=== PATIENT | female | born 1970 | race Caucasian/White ===

== ENCOUNTER 2020-06-01 20:16 | Emergency (ER) | payer SELFPAY ==
[~2020-06-01] VITALS: Ht 170.2 cm; Wt 72.0 kg
[~2020-06-01 20:16] MED LIST: IBUP-1222 PO; OXYC-302 PO
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
[2020-06-01] MEDS ORDERED: KETOROLAC 30 MG/1 ML ONE (20:45)
[2020-06-01] MEDS ORDERED: METHOCARBAMOL 750 MG TABLET ONE (20:45)
--- NOTE | 2020-06-01 20:51 | NUR ---
TORADOL AND ROBAXIN GIVEN PER EMAR.
[2020-06-01] MEDS ORDERED: METHOCARBAMOL 750 MG TABLET PO ONE (21:00)
[2020-06-01] MEDS ORDERED: KETOROLAC 30 MG/1 ML IM ONE (21:00)
--- NOTE | 2020-06-01 21:03 | NUR ---
TO XR PER PILO
[2020-06-01 21:56] VITALS: BP 119/90
--- NOTE | 2020-06-01 21:57 | NUR ---
PT LYING ON GURNEY; REPORTS IMPROVEMENT IN PAIN. SPOUSE AT BS.
--- NOTE | 2020-06-01 22:03 | NUR ---
PT REPORT TO ZEE JOHNSON. PT CARE TRANSFERRED.
== END 2020-06-01 22:35 | disposition home or self-care (01) ==
LOC: ED 22:11
DX: S22.080A Wedge compression fracture of T11-T12 vertebra, initial encounter for closed fracture (principal); W13.1XXA Fall from, out of or through bridge, initial encounter; Y93.89 Activity, other specified; Y92.89 Other specified places as the place of occurrence of the external cause; Y99.8 Other external cause status
CPT/HCPCS: 72072; 72110; 96372; 99284; J1885

== ENCOUNTER 2020-11-05 09:56 | Emergency (ER) | payer SELFPAY ==
[~2020-11-05] VITALS: Ht 170.2 cm; Wt 73.8 kg
[2020-11-05 10:03] VITALS: BP 104/61
== END 2020-11-05 12:30 | disposition home or self-care (01) ==
LOC: ED 11:22
DX: S52.602A Unspecified fracture of lower end of left ulna, initial encounter for closed fracture (principal); S52.202A Unspecified fracture of shaft of left ulna, initial encounter for closed fracture; Y08.89XA Assault by other specified means, initial encounter; Y93.89 Activity, other specified; Y92.488 Other paved roadways as the place of occurrence of the external cause; Y99.8 Other external cause status
CPT/HCPCS: 29125; 99284